=== PATIENT | female | born 1935 | race Caucasian/White ===

== ENCOUNTER → 2017-11-18 | Outpatient (CLI) | payer OTHER | END | disposition home or self-care (01) | LOC: NUCLEAR 08:44 | DX: E05.80 Other thyrotoxicosis without thyrotoxic crisis or storm (principal) | CPT/HCPCS: 78012; A9531 ==

== ENCOUNTER 2017-11-19 10:46 | Outpatient (CLI) | payer OTHER | END 2017-11-19 11:00 | disposition home or self-care (01) | LOC: NUCLEAR 10:46 | DX: E05.80 Other thyrotoxicosis without thyrotoxic crisis or storm (principal) | CPT/HCPCS: 78012; A9512 ==

== ENCOUNTER 2022-09-04 07:37 | Outpatient (CLI) | payer OTHER | END 2022-09-04 07:40 | disposition home or self-care (01) | LOC: NUCLEAR 07:37 | DX: E05.00 Thyrotoxicosis with diffuse goiter without thyrotoxic crisis or storm (principal); E06.3 Autoimmune thyroiditis | CPT/HCPCS: 78014; A9512; A9531 ==

== ENCOUNTER 2022-09-05 08:04 | Outpatient (CLI) | payer OTHER | END 2022-09-05 08:05 | disposition home or self-care (01) | LOC: NUCLEAR 08:04 | DX: E05.00 Thyrotoxicosis with diffuse goiter without thyrotoxic crisis or storm (principal); E06.3 Autoimmune thyroiditis | CPT/HCPCS: 78014; A9512; A9531 ==